=== PATIENT | female | born 1990 | race Caucasian/White ===

== ENCOUNTER 2018-10-11 08:10 | Outpatient (CLI) | payer BC ==
[~2018-10-11 08:10] MED LIST: ASPI-691 PO; MONT10TA6 PO; TETR15DR26 OP
== END 2018-10-11 23:59 | disposition home or self-care (01) ==
LOC: CFH 08:10
PROVIDERS: ATTEND Internal Medicine Cardiovascular Disease
DX: I08.8 Other rheumatic multiple valve diseases (principal)
CPT/HCPCS: 0399T; 93306